=== PATIENT | female | born 1990 | race Caucasian/White ===

== ENCOUNTER 2023-11-16 20:41 | Emergency (ER) | payer OTHER, SELFPAY ==
[2023-11-16 20:51] VITALS: BP 110/74
[2023-11-16 21:23] LABS: % Basophils 0.4 % (0-2); % Eosinophils 0.4 % (0-6); % Immature Granulocytes 0.4 % (0-0.5); % Lymphocytes 13.6 % (20.5-51.1); % Monocytes 6.4 % (1.7-9.3); % Neutrophils 78.8 % (42.2-75.2); Absolute Lymphocytes 0.7 10^3/uL (1.2-3.4); Absolute Monocytes 0.3 10^3/uL (0.1-0.6); Absolute Neutrophils 4.2 10^3/uL (1.4-6.5); Hematocrit 42.8 % (37.0-47.0); Mean Corpuscular Hgb 23.2 pg (27.0-31.0); Mean Corpuscular Volume 82.8 fL (81.0-99.0); Mean Platelet Volume 9.1 fL (7.4-10.4); Nucleated Red Blood Cells % 0 %; Platelet Count 253 10^3/uL (130-400); Red Blood Cell Count 5.17 10^6/uL (4.20-5.40); Red Cell Dist. Width 13.5 % (11.5-14.5); White Blood Cell Count 5.3 10^3/uL (4.8-10.8)
[2023-11-16 21:36] LABS: COVID-19 Antigen Negative (Negative)
[2023-11-16 21:43] LABS: ALT (SGPT) 288 U/L (0-35); AST (SGOT) 163 U/L (14-36); Albumin 3.7 g/dl (3.5-5.0); Alkaline Phosphatase 97 U/L (38-126); Blood Urea Nitrogen 3 mg/dl (7-17); Calcium 9.4 mg/dl (8.4-10.2); Carbon Dioxide 21 mmol/L (22-30); Chloride 103 mmol/L (98-107); Glucose 95 mg/dl (70-99); Potassium 3.6 mmol/L (3.5-5.1); Sodium 134 mmol/L (135-145); Total Bilirubin 0.8 mg/dl (0.2-1.3); Total Protein 6.5 g/dl (6.3-8.2); eGFR > 60.00
[2023-11-16 22:09] LABS: Atypical Lymphocytes 2 %; Band Neutrophils 18 % (0-3); Eosinophils 1 % (0-6); Lymphocytes 9 % (20-51); Monocytes 4 % (2-9); Platelets Checked Yes; Total Cells Counted 100
[2023-11-16 22:22] LABS: Absolute Neutrophils -Man Diff 4.4 10^3/uL (1.4-6.5); Segmented Neutrophils 66 % (42-75)
[2023-11-16 22:23] LABS: Normal RBC Morphology Yes; Toxic Granulation Occassional
--- NOTE | 2023-11-16 22:25 | ED.GENMED ---
History of Present Illness
General
Chief Complaint: Abdominal Symptoms
Source: patient
Exam Limitations: none
Time Seen by Provider: 11/16/23 22:17
Travel History
Have you had any contact with someone who has COVID-19?: No
Do you have any symptoms of coronavirus? Fever > 100 degrees, chills, cough, shortness of breath, sore throat, loss of taste or smell, muscle aches, or headache?: No
History of Present Illness
History of Present Illness:
See MDM
Past History
Past History
ED Past Medical History: None
ED Past Surgical History: None
Social History
Personal: Single
Living: with family
Employment: Employed
Phy Exam
Physical Exam
Physical Exam:
See MDM
Course
Orders/Labs/Results
Orders:
Orders
11/16/23 21:12
COVID-19 Antigen Urgent
Source: Nasal Swab
Complete Blood Count/With Diff Urgent
HCG, Beta Quantitative [Beta HCG Quantitative] Urgent
Is this a screen?: No
Comment: patient is preg.
Manual Differential Urgent
INF RAPID [Influenza A+B Rapid Molecular] Urgent
TAYE Source: Nasal Swab
Specimen Description:
11/16/23 21:13
CMP [Comprehensive Metabolic Panel] Urgent
11/16/23 22:25
0.9% Sodium Chloride 1000 ml [Nss] 1,000 ml IV BOLUS
11/16/23 22:26
Urine Culture Urgent
TAYE Source: Urine
Specimen Description:
Abnormal Lab Results
11/16/23 11/16/23
21:12 21:13
MCH 23.2 L pg
(27.0-31.0)
MCHC 28.0 L g/dL
(33.0-37.0)
Absolute Lymphs (auto) 0.7 L 10^3/uL
(1.2-3.4)
Neutrophils % 78.8 H %
(42.2-75.2)
Lymphocytes % 13.6 L %
(20.5-51.1)
Band Neutrophils 18 H %
(0-3)
Lymphocytes (Manual) 9 L %
(20-51)
Sodium 134 L mmol/L
(135-145)
Carbon Dioxide 21 L mmol/L
(22-30)
BUN 3 L mg/dl
(7-17)
Creatinine 0.4 L mg/dL
(0.6-1.0)
AST 163 H U/L
(14-36)
ALT 288 H U/L
(0-35)
11/16/23 21:12
11/16/23 21:13
Vital Signs
Initial and Last Documented VS:
Initial Vital Signs
Temp Pulse Resp BP Pulse Ox
98.0 F 112 18 110/74 100
11/16/23 20:51 11/16/23 20:51 11/16/23 20:51 11/16/23 20:51 11/16/23 20:51
Last Documented Vital Signs
Temp Pulse Resp BP Pulse Ox
98.0 F 112 18 110/74 100
11/16/23 20:51 11/16/23 20:51 11/16/23 20:51 11/16/23 20:51 11/16/23 20:51
MDM/Problems Addressed
Differential Diagnosis Includes:
HPI and MDM Narrative:
33-year-old female presenting with nausea, vomiting and cough. Patient developed a cough on . She went to urgent care and was told she has a sinus infection. Patient disagreed with the diagnosis but took the antibiotics as prescribed.
Patient is approximately 9 weeks . She is G1, P0. She denies abdominal pain, vaginal bleeding or loss of fluid
On exam, she is dehydrated. She is a soft and nontender abdomen. She complains of increased urinary frequency but states that has been a relatively chronic issue. Patient states she has already had an internal ultrasound confirming IUP.
Patient found to be influenza positive. Since patient has been symptomatic for the past 4 days, she is out of the Tamiflu window. Will give IV fluids for dehydration. Lungs are clear. We discussed low utility of chest x-ray
Physical exam
General: Well appearing and non-toxic
HEENT: protecting airway. Dry mucous membranes
Neck: appears supple
CV: No evidence of cyanosis
Resp: No accessory muscle use. Lungs clear
Abd: Non-distended and nontender
Extremities: No deformities
Neuro: alert
Psych: Normal affect
Skin: Intact
Problems Addressed including Acute and Chronic Conditions affecting care:
1. Influenza
Acuity: acute
Prognosis: stable
Details: Discussed symptomatic care. She is out of the Tamiflu window
2. Dehydration
Acuity: acute
Prognosis: stable
Details: Will give IV fluids
3.
Acuity: acute
Prognosis: stable
Details: She states she already had ultrasound confirming live IUP. No symptoms of miscarriage in regards to abdominal pain, cramping or bleeding.
Updates
We discussed the elevated LFTs. Discussed having this reevaluated by PCP and OB
12 AM reevaluation, patient feeling better. Fluids almost done. Patient feels comfortable going home
Differential Diagnosis (but not limited to): Pneumonia, viral syndrome, COVID, influenza, dehydration
Testing considered: Chest x-ray but lungs are clear
Drug therapy (if applicable): OTC meds, please see d/c instruction regarding Rx drugs
Amount and/or Complexity of Data Reviewed
Clinical info obtained from: Patient
External data reviewed: N/A
Labs I independently reviewed (but not limited to): Influenza positive. LFT elevation but hemoglobin and platelets within normal limits. Blood pressure stable
Radiology: N/A
Pulse Ox: not hypoxic
EKG independently reviewed: N/A
Enzyme Chemist: N/A
Critical Care: N/A
Risk of Complication:
Social Determinants of health: Good social support
Discussed with other providers: N/A
Escalation of Care includes Admit/Obs: After being observed in the Emergency Department, pt stable for discharge.
Occasional wrong word or 'sound a like' substitutions may have occurred due to the inherent limitations of voice recognition software. Read the chart carefully and recognize, using context, where substitutions have occurred.
*Critical Care Note
Total Time (30-74mins, 75-104mins- exclusive of procedures): Not Applicable
ED Attending Note
-
Portions of this chart may have been created with voice recognition software.� Occasional wrong word or��sound alike� substitutions may have occurred due to the inherent limitations of voice recognition software.
Discharge Plan
Departure
Patient Disposition: Home (Routine Discharge)
Date of Disposition: 11/16/23
Time of Disposition: 23:54
Patient with high blood pressure during this ER visit?: No
Discharge Problem:
Influenza, Dehydration, LFT elevation
Instructions: Flu, Adult ED
Prescriptions:
No Action
lactase [Dairy Relief] 1 CAPSULE tablet
1 cap PO PRN PRN (Reason: reaction to milk)
Referrals:
Melvin Nixon MD [Family Provider] -
Activity Restrictions/Additional Instructions:
Please return for any worsening symptoms.
You may return at any time if you have further concerns.
Please follow up with your primary care doctor and OB at the first available appointment, preferably this week. Please discuss your symptoms. Your liver function should be rechecked.
Thank you for choosing [facility].
Interventions
Interventions:
*Risk Screen - Suicide Last Done: 11/16/23 20:51
*General Assessment Last Done: 11/16/23 20:51
*Neglect/Abuse Screening Last Done: 11/16/23 20:51
ED- Fall Risk Assessment Last Done: 11/16/23 20:51
*ED COVID-19 Vaccine History Last Done: 11/16/23 20:51
LH-Nvmtpp-Lanyvxwjzt Assessment Last Done: 11/16/23 22:31
[2023-11-16 22:31] VITALS: BMI 36.8
[2023-11-16] MEDS: NSS 1000 IV (22:41)
== END 2023-11-17 01:15 | disposition home or self-care (01) ==
LOC: EMR 20:41
PROVIDERS: Emergency Medicine; EMERGENCY PHYSICIAN Student in an Organized Health Care Education/Training Program; FAMILY PHYSICIAN Family Medicine
DX: O21.9 Vomiting of pregnancy, unspecified (principal); O99.511 Diseases of the respiratory system complicating pregnancy, first trimester; J11.1 Influenza due to unidentified influenza virus with other respiratory manifestations; E86.0 Dehydration; R79.89 Other specified abnormal findings of blood chemistry; O99.281 Endocrine, nutritional and metabolic diseases complicating pregnancy, first trimester; Z3A.09 9 weeks gestation of pregnancy; R35.0 Frequency of micturition; Z11.52 Encounter for screening for COVID-19; Z88.8 Allergy status to other drugs, medicaments and biological substances
CPT/HCPCS: 99284; 96360; 80053; 84702; 85025; 87502; 87811

== ENCOUNTER 2023-11-24 10:52 | Observation (INO) | payer OTHER, SELFPAY ==
[2023-11-23 22:41] VITALS: BP 122/80
--- NOTE | 2023-11-23 23:11 | ED.GENMED ---
History of Present Illness
<DEBORA Cruz - Last Filed: 11/23/23 23:17>
General
Chief Complaint: Abdominal Symptoms
Source: patient
Exam Limitations: none
Time Seen by Provider: 11/23/23 22:45
Nursing documentation reviewed up to this point in time: agreed with
Travel History
Have you had any contact with someone who has COVID-19?: No
Do you have any symptoms of coronavirus? Fever > 100 degrees, chills, cough, shortness of breath, sore throat, loss of taste or smell, muscle aches, or headache?: No
History of Present Illness
History of Present Illness:
33 y/o F who is 10 weeks presents to ED after continuous vomiting throughout . Patient states she has vomited 15 times today and has lost about 10 pounds in the last week. Patient was diagnosed with Flu last week in ED. She states
her flu symptoms are resolving except for persistent cough. Patient states she saw her OBGYN 1.5 weeks ago and was given B6/Unisom for her nausea. She states she was only able to take it for 2-3 days before she got sick with the flu and stopped
taking it. She states she is trying to eat small meals but is still not able to keep anything down. She denies abdominal pain, diarrhea, headache, congestion or chest pain.
Past History
<DEBORA Cruz - Last Filed: 11/23/23 23:17>
Past History
ED Past Medical History: None
ED Past Surgical History: None
Social History
Personal: Single
Living: with family
Employment: Employed
Review of Systems
<DEBORA Cruz - Last Filed: 11/23/23 23:17>
Review of Systems
Allergies reviewed?: Yes
All Other Systems: ROS reviewed and negative except as documented in HPI and ROS
Constitutional: Reports weight loss
EENT: Reports no symptoms
Respiratory: Reports cough
Cardiac: Reports no symptoms
ABD/GI: Reports nausea and vomiting
: Reports no symptoms
Musculoskeletal: Reports no symptoms
Skin: Reports no symptoms
Neurological: Reports no symptoms
Endocrine: Reports no symptoms
Hematologic/Lymphatic: Reports no symptoms
Psychiatric: Reports no symptoms
Phy Exam
<DEBORA Cruz - Last Filed: 11/23/23 23:17>
General Physical Exam
General Presentation: well appearing and no apparent distress
General age: appears stated age
General Skin: warm and dry
General Habitus: normal
General Mental: alert
General Hydration: appears well hydrated
ENT Exam
ENT Exam: EOMI, TM's normal and pharynx normal
Cardiovascular Exam
Cardiovascular Exam: regular rate/rhythm, no edema, no gallop, no murmur and normal peripheral pulses
Pulmonary Exam
Pulmonary Exam: lungs clear, no respiratory distress, no rales, no crackles and no rhonchi
Gastrointestinal Exam
Gastrointestinal Exam: normal bowel sounds
Neurological Exam
Neurological Exam: alert and oriented x3
Skin Exam
Skin Exam: normal color, warm/dry and no rash
Psychiatric Exam
Psychiatric Exam: normal mood/affect
Course
<DEBORA Cruz - Last Filed: 11/23/23 23:17>
Orders/Labs/Results
Orders:
Orders
11/23/23 23:14
0.9% Sodium Chloride 1000 ml [Nss] 1,000 ml IV BOLUS
Ondansetron Injectable [Zofran] 4 mg IV NOW STA
11/23/23 23:18
Prochlorperazine [Compazine] 10 mg IV NOW STA
11/23/23 23:28
Basic Metabolic Panel Urgent
Magnesium Urgent
Urinalysis Reflex To Culture Urgent
Date Specimen was Collected: 11/23/23
Time Specimen was Collected: 23:27
Urine Microscopic Reflex Cult Urgent
Urine Culture Urgent
TAYE Source: U
Specimen Description:
Date Specimen was Collected: 11/23/23
Time Specimen was Collected: 23:27
11/23/23 23:40
Famotidine [Pepcid] 20 mg IV NOW STA
Lorazepam [Ativan] 0.5 mg IV NOW STA
11/24/23 00:23
0.9% Sodium Chloride 500 ml [Nss] 500 ml IV BOLUS
11/24/23 00:24
Potassium Chloride [KCl] 40 meq PO NOW STA
11/24/23 01:00
Dextrose 5%/0.45%Sodchl 500 ml [D5/0.45%NaCl] 500 ml IV 125 mls/hr
11/24/23 01:45
Potassium Chloride [KCl] 20 meq Dextrose 5%/Water 500 ml [D5w] 500 ml IV ONCE
11/24/23 06:40
Basic Metabolic Panel Urgent
11/24/23 06:59
Urinalysis Reflex To Culture Urgent
Date Specimen was Collected: 11/24/23
Time Specimen was Collected: 06:54
11/24/23 08:20
Potassium Chloride 10% Elixir [KCl Elixir] 40 meq PO NOW STA
11/24/23 10:11
Metoclopramide [Reglan] 10 mg IV NOW STA
Abnormal Lab Results
11/23/23 11/24/23 11/24/23
23:28 06:40 06:59
Sodium 134 L mmol/L 134 L mmol/L
(135-145) (135-145)
Potassium 3.3 L mmol/L 3.2 L mmol/L
(3.5-5.1) (3.5-5.1)
Chloride 108 H mmol/L 108 H mmol/L
(98-107) (98-107)
Carbon Dioxide 11 L* mmol/L 16 L mmol/L
(22-30) (22-30)
BUN 3 L mg/dl < 2 L mg/dl
(7-17) (7-17)
Creatinine 0.4 L mg/dL 0.4 L mg/dL
(0.6-1.0) (0.6-1.0)
Glucose 100 H mg/dl
(70-99)
Calcium 8.3 L mg/dl
(8.4-10.2)
Urine Ketones 3+ A 3+ A
(Negative) (Negative)
Urine Bilirubin 1+ A
(Negative)
Urine Urobilinogen 3+ A 2+ A
(Neg - 1+) (Neg - 1+)
Leukocyte Esterase Rfl Trace A
(Negative)
Urine RBC 3-6 A /HPF
(0-2)
Urine Bacteria (Reflex) Moderate A
(Negative)
Urine Albumin (Reflex) 1+ A
(Neg - Trace)
11/24/23 06:40
Vital Signs
Initial and Last Documented VS:
Initial Vital Signs
Temp Pulse Resp BP Pulse Ox
98 F 98 20 122/80 100
11/23/23 22:41 11/23/23 22:41 11/23/23 22:41 11/23/23 22:41 11/23/23 22:41
Last Documented Vital Signs
Temp Pulse Resp BP Pulse Ox
97.6 F 76 20 98/62 97
11/24/23 11:04 11/24/23 11:04 11/24/23 11:04 11/24/23 11:04 11/24/23 10:28
<Kunal Knox MD - Last Filed: 11/25/23 15:06>
Orders/Labs/Results
Orders:
Orders
11/23/23 23:14
0.9% Sodium Chloride 1000 ml [Nss] 1,000 ml IV BOLUS
Ondansetron Injectable [Zofran] 4 mg IV NOW STA
11/23/23 23:18
Prochlorperazine [Compazine] 10 mg IV NOW STA
11/23/23 23:28
Basic Metabolic Panel Urgent
Magnesium Urgent
Urinalysis Reflex To Culture Urgent
Date Specimen was Collected: 11/23/23
Time Specimen was Collected: 23:27
Urine Microscopic Reflex Cult Urgent
Urine Culture Urgent
TAYE Source: U
Specimen Description:
Date Specimen was Collected: 11/23/23
Time Specimen was Collected: 23:27
11/23/23 23:40
Famotidine [Pepcid] 20 mg IV NOW STA
Lorazepam [Ativan] 0.5 mg IV NOW STA
11/24/23 00:23
0.9% Sodium Chloride 500 ml [Nss] 500 ml IV BOLUS
11/24/23 00:24
Potassium Chloride [KCl] 40 meq PO NOW STA
11/24/23 01:00
Dextrose 5%/0.45%Sodchl 500 ml [D5/0.45%NaCl] 500 ml IV 125 mls/hr
11/24/23 01:45
Potassium Chloride [KCl] 20 meq Dextrose 5%/Water 500 ml [D5w] 500 ml IV ONCE
11/24/23 06:40
Basic Metabolic Panel Urgent
11/24/23 06:59
Urinalysis Reflex To Culture Urgent
Date Specimen was Collected: 11/24/23
Time Specimen was Collected: 06:54
11/24/23 08:20
Potassium Chloride 10% Elixir [KCl Elixir] 40 meq PO NOW STA
11/24/23 10:11
Metoclopramide [Reglan] 10 mg IV NOW STA
Abnormal Lab Results
11/23/23 11/24/23 11/24/23
: 06:40 06:59
Sodium 134 L mmol/L 134 L mmol/L
(135-145) (135-145)
Potassium 3.3 L mmol/L 3.2 L mmol/L
(3.5-5.1) (3.5-5.1)
Chloride 108 H mmol/L 108 H mmol/L
(98-107) (98-107)
Carbon Dioxide 11 L* mmol/L 16 L mmol/L
(22-30) (22-30)
BUN 3 L mg/dl < 2 L mg/dl
(7-17) (7-17)
Creatinine 0.4 L mg/dL 0.4 L mg/dL
(0.6-1.0) (0.6-1.0)
Glucose 100 H mg/dl
(70-99)
Calcium 8.3 L mg/dl
(8.4-10.2)
Urine Ketones 3+ A 3+ A
(Negative) (Negative)
Urine Bilirubin 1+ A
(Negative)
Urine Urobilinogen 3+ A 2+ A
(Neg - 1+) (Neg - 1+)
Leukocyte Esterase Rfl Trace A
(Negative)
Urine RBC 3-6 A /HPF
(0-2)
Urine Bacteria (Reflex) Moderate A
(Negative)
Urine Albumin (Reflex) 1+ A
(Neg - Trace)
11/24/23 06:40
Vital Signs
Initial and Last Documented VS:
Initial Vital Signs
Temp Pulse Resp BP Pulse Ox
98 F 98 20 122/80 100
11/23/23 22:41 11/23/23 22:41 11/23/23 22:41 11/23/23 22:41 11/23/23 22:41
Last Documented Vital Signs
Temp Pulse Resp BP Pulse Ox
97.6 F 76 20 98/62 97
11/24/23 11:04 11/24/23 11:04 11/24/23 11:04 11/24/23 11:04 11/24/23 10:28
<Margarito Talavera, DO - Last Filed: 11/24/23 10:13>
Orders/Labs/Results
Orders:
Orders
11/23/23 23:14
0.9% Sodium Chloride 1000 ml [Nss] 1,000 ml IV BOLUS
Ondansetron Injectable [Zofran] 4 mg IV NOW STA
11/23/23 23:18
Prochlorperazine [Compazine] 10 mg IV NOW STA
11/23/23 23:28
Basic Metabolic Panel Urgent
Magnesium Urgent
Urinalysis Reflex To Culture Urgent
Date Specimen was Collected: 11/23/23
Time Specimen was Collected: 23:27
Urine Microscopic Reflex Cult Urgent
Urine Culture Urgent
TAYE Source: U
Specimen Description:
Date Specimen was Collected: 11/23/23
Time Specimen was Collected: 23:27
11/23/23 23:40
Famotidine [Pepcid] 20 mg IV NOW STA
Lorazepam [Ativan] 0.5 mg IV NOW STA
11/24/23 00:23
0.9% Sodium Chloride 500 ml [Nss] 500 ml IV BOLUS
11/24/23 00:24
Potassium Chloride [KCl] 40 meq PO NOW STA
11/24/23 01:00
Dextrose 5%/0.45%Sodchl 500 ml [D5/0.45%NaCl] 500 ml IV 125 mls/hr
11/24/23 01:45
Potassium Chloride [KCl] 20 meq Dextrose 5%/Water 500 ml [D5w] 500 ml IV ONCE
11/24/23 06:40
Basic Metabolic Panel Urgent
11/24/23 06:59
Urinalysis Reflex To Culture Urgent
Date Specimen was Collected: 11/24/23
Time Specimen was Collected: 06:54
11/24/23 08:20
Potassium Chloride 10% Elixir [KCl Elixir] 40 meq PO NOW STA
11/24/23 10:11
Metoclopramide [Reglan] 10 mg IV NOW STA
Abnormal Lab Results
11/23/23 11/24/23 11/24/23
23:28 06:40 06:59
Sodium 134 L mmol/L 134 L mmol/L
(135-145) (135-145)
Potassium 3.3 L mmol/L 3.2 L mmol/L
(3.5-5.1) (3.5-5.1)
Chloride 108 H mmol/L 108 H mmol/L
(98-107) (98-107)
Carbon Dioxide 11 L* mmol/L 16 L mmol/L
(22-30) (22-30)
BUN 3 L mg/dl < 2 L mg/dl
(7-17) (7-17)
Creatinine 0.4 L mg/dL 0.4 L mg/dL
(0.6-1.0) (0.6-1.0)
Glucose 100 H mg/dl
(70-99)
Calcium 8.3 L mg/dl
(8.4-10.2)
Urine Ketones 3+ A 3+ A
(Negative) (Negative)
Urine Bilirubin 1+ A
(Negative)
Urine Urobilinogen 3+ A 2+ A
(Neg - 1+) (Neg - 1+)
Leukocyte Esterase Rfl Trace A
(Negative)
Urine RBC 3-6 A /HPF
(0-2)
Urine Bacteria (Reflex) Moderate A
(Negative)
Urine Albumin (Reflex) 1+ A
(Neg - Trace)
11/24/23 06:40
Vital Signs
Initial and Last Documented VS:
Initial Vital Signs
Temp Pulse Resp BP Pulse Ox
98 F 98 20 122/80 100
11/23/23 22:41 11/23/23 22:41 11/23/23 22:41 11/23/23 22:41 11/23/23 22:41
Last Documented Vital Signs
Temp Pulse Resp BP Pulse Ox
97.6 F 76 20 98/62 97
11/24/23 11:04 11/24/23 11:04 11/24/23 11:04 11/24/23 11:04 11/24/23 10:28
<DEBORA Cruz - Last Filed: 11/23/23 23:17>
MDM/Problems Addressed
Differential Diagnosis Includes:
Hyperemesis Gravidarum
<Kunal Knox MD - Last Filed: 11/25/23 15:06>
*Critical Care Note
Total Time (30-74mins, 75-104mins- exclusive of procedures): Not Applicable
<Margarito Talavera DO - Last Filed: 11/24/23 10:13>
Update Note
Update Note:
Patient reassessed several times. Initially felt a little better. Again reassessed and now vomiting again. Attempted oral hydration and oral potassium supplement but patient cannot tolerate it. Will discuss with OB and admit
ED Attending Note
<DEBORA Cruz - Last Filed: 11/23/23 23:17>
-
Portions of this chart may have been created with voice recognition software.� Occasional wrong word or��sound alike� substitutions may have occurred due to the inherent limitations of voice recognition software.
<Kunal Knox MD - Last Filed: 11/25/23 15:06>
ED Attending Note
Patient seen and examined by attending physician: Yes
ED Attending Note:
Patient G1, P0, diagnosed with influenza 1 week ago and treated in ED, returns to ED secondary to worsening vomiting since being home. However, patient states that other symptoms, including headache and cough have improved significantly. Denies
abdominal pain. Denies vaginal bleeding. Denies chest pain. Denies shortness of breath. Denies dizziness. Patient reports vomiting greater than 10 episodes today.
Physical Exam
General: mild distress, not acutely ill. afebrile
Head: nc/at. eomi
Neck: supple. no meningeal signs. normal posterior pharynx
Heart: s1/s2 regular rate and rhythm, no murmur. equal radial pulses.
Lungs: no acute respiratory distress. clear bilaterally
Abdomen: normal bowel sounds. not tender.
Neuro: alert and oriented. no focal neurological deficits
Skin: no rash
Psychiatric: well kept. interactive and cooperative
Extremities: no edema. no calf tenderness.
History/exam, concerning for mild dehydration. As such, will check blood, U/A, provide IVF and reassess afterwards.
Blood work significant for metabolic acidosis, along with ketones noted on UA. Will continue hydration, including D5 1/2 NS with K+, and repeat studies afterwards.
Discharge Plan
Departure
Patient Disposition: LDRP
Date of Disposition: 11/24/23
Time of Disposition: 10:12
Admit to: Med/Surg
Presentation/result/management discussed w/ accepting /DO:
Discharge Problem:
Hyperemesis gravidarum, Hypokalemia, Severe dehydration
Interventions
Interventions:
*Risk Screen - Suicide Last Done: 11/24/23 11:04
*General Assessment Last Done: 11/24/23 03:15
*Neglect/Abuse Screening Last Done: 11/23/23 22:41
ED- Fall Risk Assessment Last Done: 11/23/23 23:31
*ED COVID-19 Vaccine History Last Done: 11/24/23 03:15
*Nursing Disposition Last Done: 11/24/23 10:57
OA-Takgzd-Qxbcoxqytc Assessment Last Done: 11/23/23 23:31
ED-Female Genitourinary Assessment Last Done: 11/23/23 23:31
Discharge Date and Time
Discharge Date/Time: 11/24/23 10:58
[2023-11-23] MEDS: NSS 1000 IV (23:25)
[2023-11-23] MEDS: COMPAZINE 10 MG IV (23:25)
[2023-11-23 23:36] LABS: Urine Albumin 1+ (Neg - Trace); Urine Bilirubin 1+ (Negative); Urine Character Slightly Cloudy (Clear); Urine Color Yellow; Urine Glucose Negative (Negative); Urine Ketone 3+ (Negative); Urine Leukocyte Trace (Negative); Urine Nitrite Negative (Negative); Urine Occult Blood Negative (Negative); Urine Specific Gravity 1.025 (<1.030); Urine Urobilinogen 3+ (Neg - 1+)
[2023-11-23] MEDS: PEPCID 20 MG IV (23:44)
[2023-11-23 23:52] LABS: Blood Urea Nitrogen 3 mg/dl (7-17); Calcium 9.3 mg/dl (8.4-10.2); Carbon Dioxide 11 mmol/L (22-30); Chloride 108 mmol/L (98-107); Glucose 90 mg/dl (70-99); Magnesium 1.8 mg/dl (1.6-2.3); Potassium 3.3 mmol/L (3.5-5.1); Sodium 134 mmol/L (135-145); eGFR > 60.00
[2023-11-24 00:11] LABS: Urine Bacteria Moderate (Negative); Urine Squamous Cell >30 /LPF (Few)
[2023-11-24] MEDS: NSS 500 IV (00:33)
[2023-11-24] MEDS: KCL 510 MEQ IV (01:45)
[2023-11-24 03:40] VITALS: BP 99/66
[2023-11-24 07:12] LABS: Blood Urea Nitrogen < 2 mg/dl (7-17); Calcium 8.3 mg/dl (8.4-10.2); Carbon Dioxide 16 mmol/L (22-30); Chloride 108 mmol/L (98-107); Glucose 100 mg/dl (70-99); Potassium 3.2 mmol/L (3.5-5.1); Sodium 134 mmol/L (135-145); eGFR > 60.00
[2023-11-24 07:17] LABS: Urine Albumin Trace (Neg - Trace); Urine Bilirubin Negative (Negative); Urine Character Clear (Clear); Urine Color Yellow; Urine Glucose Negative (Negative); Urine Ketone 3+ (Negative); Urine Leukocyte Negative (Negative); Urine Nitrite Negative (Negative); Urine Occult Blood Negative (Negative); Urine Specific Gravity 1.025 (<1.030); Urine Urobilinogen 2+ (Neg - 1+)
[2023-11-24] MEDS: KCL ELIXIR 40 MEQ PO (08:27)
[2023-11-24] MEDS: REGLAN 10 MG IV (10:18)
[2023-11-24 10:28] VITALS: BP 99/66
[2023-11-24 11:04] VITALS: BP 98/62; BMI 35.6
[2023-11-24] MEDS: KCL 1020 MEQ IV (11:54)
[2023-11-24] MEDS: KCL 1020 ML IV (11:54)
[2023-11-24] MEDS: KCL 1010 MEQ IV (20:21)
[2023-11-25] MEDS: KCL 1010 MEQ IV (03:35)
[2023-11-25 08:48] LABS: Urine Albumin Negative (Neg - Trace); Urine Bilirubin Negative (Negative); Urine Character Clear (Clear); Urine Color Yellow; Urine Glucose Negative (Negative); Urine Ketone 3+ (Negative); Urine Leukocyte Negative (Negative); Urine Nitrite Negative (Negative); Urine Occult Blood Negative (Negative); Urine Specific Gravity 1.015 (<1.030); Urine Urobilinogen Negative (Neg - 1+)
[2023-11-25 09:06] LABS: ALT (SGPT) 255 U/L (0-35); AST (SGOT) 87 U/L (14-36); Albumin 3.4 g/dl (3.5-5.0); Alkaline Phosphatase 84 U/L (38-126); Blood Urea Nitrogen < 2 mg/dl (7-17); Calcium 8.7 mg/dl (8.4-10.2); Carbon Dioxide 14 mmol/L (22-30); Chloride 110 mmol/L (98-107); Estimated Creatinine Clearance > 125 ml/min; Glucose 79 mg/dl (70-99); Sodium 134 mmol/L (135-145); Total Bilirubin 1.3 mg/dl (0.2-1.3); eGFR > 60.00
[2023-11-25] MEDS: SODIUM BICARBONATE 1150 MEQ IV (10:36)
--- NOTE | 2023-11-25 15:33 | W.CON.NEPH ---
Consultation
-
Date/Time Consultation Requested: 11/25 9:46AM
Date/Time Consultation Performed: 11/25 3:33PM
Requesting Provider: Alta Flores
Performing Provider: Beronica Atkinson
Reason for Consultation: metabolic acidosis
Medical History
-
Chief Complaint: metabolic acidosis
History of Present Illness:
Ms. Santana is a 33 YOF () with no significant past medical history who presents to the hospital after not being able to tolerate PO intake since . The patient states that last week she developed the flu and had been unable to keep food
or liquid down from to Friday evening. She states that yesterday, she was able to have some chicken noodle soup in the evening and this morning, she did have some breakfast. She endorses throwing up >15x/day, along with some mild diarrhea.
She states that she has felt terrible with the flu, including cough, fevers, and chills.
Nephrology was consulted due to severe metabolic acidosis.
Past Medical History
none
Past Medical History: None
Past Surgical History: None
Social History
lives with mom at home, has a fiance, works as a information receptionist.
denies smoking, drinking, illicits.
Tobacco: Non-Smoker
Alcohol: None
Drug: None
Personal: Single
Living: With Family
Employment: Employed
Family History
grandmother had hyperemesis with
Allergies / Home Medications
Allergy/AdvReac Type Severity Reaction Status Date / Time
diphenhydramine Allergy Rash Verified 11/24/23 11:10
[From Benadryl]
Medication Instructions Recorded Confirmed Type
No Meds [No Current Medications] 11/24/23 11/24/23 History
Review of Systems
-
History Source: Patient
All other systems: Negative unless noted
Constitutional: Fever, Weight Loss and Fatigue
EENT: No Symptoms
Respiratory: Cough
Cardiac: No Symptoms
Abdomen/GI: Nausea, Vomiting and Diarrhea
: No Symptoms
Musculoskeletal: No Symptoms
Skin: No Symptoms
Neurological: No Symptoms
Endocrine: No Symptoms
Hematologic/Lymphatic: No Symptoms
Physical Exam
Vital Signs
Vital Signs
Temp Pulse Resp BP Pulse Ox
97.6 F 76 20 98/62 97
11/24/23 11:04 11/24/23 11:04 11/24/23 11:04 11/24/23 11:04 11/24/23 10:28
Lab Results
eGFR > 60.00 11/25/23 08:24
Albumin 3.4 g/dl (3.5-5.0) L 11/25/23 08:24
Physical Exam
General: AOx3
HEENT: PERRL and EOMI
Respiratory: Clear
Cardiac: S1/S2
Breast: Deferred by me
Abdomen: Soft, Nontender and Nondistended
Rectal: Deferred by Provider
Genito-urinary: Clear Urine
Musculoskeletal: No Edema
Skin: No Rash
Neuro: Nonfocal/Grossly Intact
Psych: Mood/afflect pleasant, Insight/judgement good and Appropriate
Assessment/Plan
-
Assessment:
Hyperemesis gravidarum
HAGMA + NAGMA
Hyponatremia
Flu +
Diarrhea
Plan:
Acid/Base
- HAGMA likely from starvation ketosis, will obtain beta hydroxybutyrate but gap has already closed with fluids and PO intake so might not be elevated
- NAGMA likely from diarrhea. will obtain UAG
- agree with sodium bicarbonate which is running now.
- will not do D5 as the patient is now able to tolerate PO intake
- encourage PO intake as possible
- labs planned for 4PM.
Hyponatremia
- Na 134 and stable, likely hypovolemic hyponatremia +
- would continue to trend BMPs
- urine osm and urine Na pending
Data Reviewed
-
Labs: Labs Reviewed by me, Discussed with Nurse and Discussed with Patient
Old Records: Reviewed
[2023-11-25 17:01] LABS: Blood Urea Nitrogen < 2 mg/dl (7-17); Calcium 8.6 mg/dl (8.4-10.2); Carbon Dioxide 21 mmol/L (22-30); Chloride 102 mmol/L (98-107); Estimated Creatinine Clearance > 125 ml/min; Glucose 75 mg/dl (70-99); Potassium 3.4 mmol/L (3.5-5.1); Sodium 134 mmol/L (135-145); eGFR > 60.00
[2023-11-25 17:13] LABS: Osmolality Urine 509 mOsm/kg (300-900)
[2023-11-25 17:19] LABS: Urine Sodium 183 mmol/L (30-90)
[2023-11-25 17:23] LABS: B-Hydroxybutyrate 2.51 mmol/L (0.02-0.27)
[2023-11-25] MEDS: KCL 1020 MEQ IV (18:31)
--- NOTE | 2023-11-26 04:09 | DOWNTIME ---
There was a [employer] Downtime on 11/26/2023 from 0111 to 11/26/2023 at 0405. Downtime documentation of patient's care, including medication administrations, has been reconciled in the electronic record per guidelines. Refer to the
patient's paper chart under the miscellaneous tab to see printed paper medication records and downtime forms.
[2023-11-26] MEDS: KCL 1020 MEQ IV (04:13)
[2023-11-26 07:02] LABS: B-Hydroxybutyrate 1.99 mmol/L (0.02-0.27)
[2023-11-26 08:59] LABS: Glycohemoglobin (HgbA1c) 5.2 % (4.0-5.6)
[2023-11-26 10:34] LABS: ALT (SGPT) 199 U/L (0-35); AST (SGOT) 62 U/L (14-36); Alkaline Phosphatase 70 U/L (38-126); Blood Urea Nitrogen < 2 mg/dl (7-17); Calcium 8.6 mg/dl (8.4-10.2); Carbon Dioxide 21 mmol/L (22-30); Chloride 108 mmol/L (98-107); Estimated Creatinine Clearance > 125 ml/min; Glucose 78 mg/dl (70-99); Potassium 3.8 mmol/L (3.5-5.1); Sodium 135 mmol/L (135-145); Total Bilirubin 0.9 mg/dl (0.2-1.3); Total Protein 5.5 g/dl (6.3-8.2); eGFR > 60.00
--- NOTE | 2023-11-26 13:58 | W.PN.NEPH.PH ---
Today's Communication / Plan
-
- Na improved
- Acidosis stable
- D5/sodium bicarb gtt overnight
- trend beta hydroxybutyrates
Assessment/Plan
-
Assessment:
Hyperemesis gravidarum
HAGMA + NAGMA
Hyponatremia
Flu +
Diarrhea
Plan:
Acid/Base
- HAGMA likely from starvation ketoacidosis, beta hydroxybutyrate elevated to 2.5, improved to 1.9 this AM with fluids
- NAGMA likely from diarrhea. will obtain UAG (urine chloride still pending)
- given LR overnight, plan to change to [id number] today
- encourage PO intake as possible
Hyponatremia (resolved)
- Na 135 now, previously 134, likely hypovolemic hyponatremia +
- would continue to trend BMPs
Hypokalemia
- please replete K PRN
- now stable at 3.8
Of note the patient is noted to have elevated AST/ALT. Could be caused by starvation but would consider abdominal imaging/GI consult.
-
-
Date of Service: November 26, 2023
CC / HPI / ROS
-
Chief Complaint:
acidosis
History of Present Illness:
hyperemesis gravidarum
flu +
Review of Systems:
tolerating PO intake now
Labs
-
Labs:
Sodium Cancelled 11/26/23 08:19
Potassium Cancelled 11/26/23 08:19
Chloride Cancelled 11/26/23 08:19
Carbon Dioxide Cancelled 11/26/23 08:19
BUN Cancelled 11/26/23 08:19
Creatinine Cancelled 11/26/23 08:19
eGFR Cancelled 11/26/23 08:19
Glucose Cancelled 11/26/23 08:19
Calcium Cancelled 11/26/23 08:19
Albumin Cancelled 11/26/23 08:19
Physical Exam
-
Vital Signs:
Vital Signs
Temp Pulse Resp BP Pulse Ox
97.6 F 76 20 98/62 97
11/24/23 11:04 11/24/23 11:04 11/24/23 11:04 11/24/23 11:04 11/24/23 10:28
Cardiovascular:: Regular rate and rhythm
Respiratory:: Bilateral: CTA
Lung Excursion:: Normal
Abdomen:: Nontender and Soft
Bowel Sounds:: Normal
Extremity Edema:: None: Bilateral:
Conti Catheter: No
[2023-11-26] MEDS: SODIUM BICARBONATE 1150 MEQ IV (14:29)
[2023-11-27] MEDS: SODIUM BICARBONATE 1150 MEQ IV (03:04)
[2023-11-27 06:02] LABS: ALT (SGPT) 171 U/L (0-35); AST (SGOT) 54 U/L (14-36); Albumin 2.7 g/dl (3.5-5.0); Alkaline Phosphatase 74 U/L (38-126); Blood Urea Nitrogen < 2 mg/dl (7-17); Calcium 8.7 mg/dl (8.4-10.2); Carbon Dioxide 28 mmol/L (22-30); Chloride 105 mmol/L (98-107); Estimated Creatinine Clearance > 125 ml/min; Glucose 110 mg/dl (70-99); Potassium 3.3 mmol/L (3.5-5.1); Sodium 135 mmol/L (135-145); Total Bilirubin 0.6 mg/dl (0.2-1.3); Total Protein 5.1 g/dl (6.3-8.2); eGFR > 60.00
[2023-11-27] MEDS: KCL 40 MEQ PO (09:46)
--- NOTE | 2023-11-27 15:02 | W.PN.NEPH.PH ---
Today's Communication / Plan
-
- likely d/c home
- f/u labs per OB
Assessment/Plan
-
Assessment:
Hyperemesis gravidarum
HAGMA + NAGMA
Hyponatremia
Flu +
Diarrhea
Plan:
Acid/Base
- HAGMA likely from starvation ketoacidosis, beta hydroxybutyrate elevated to 2.5 --> 1.9 --> 0.2
- normalized with [id number]
- encourage PO intake as possible
Hyponatremia (resolved)
- Na 135 now, previously 134, likely hypovolemic hyponatremia +
- would continue to trend BMPs
Hypokalemia
- please replete K PRN
- likely low in the setting of D5 with insulin release causing hypoK
Of note the patient is noted to have elevated AST/ALT. Could be caused by starvation but would consider abdominal imaging/GI consult.
-
-
Date of Service: November 27, 2023
CC / HPI / ROS
-
Chief Complaint:
acidosis
History of Present Illness:
hyperemesis gravidarum
flu +
Review of Systems:
tolerating PO intake now
Labs
-
Labs:
Sodium 135 mmol/L (135-145) 11/27/23 05:12
Potassium 3.3 mmol/L (3.5-5.1) L 11/27/23 05:12
Chloride 105 mmol/L (98-107) 11/27/23 05:12
Carbon Dioxide 28 mmol/L (22-30) 11/27/23 05:12
BUN < 2 mg/dl (7-17) L 11/27/23 05:12
Creatinine 0.3 mg/dL (0.6-1.0) L 11/27/23 05:12
eGFR > 60.00 11/27/23 05:12
Glucose 110 mg/dl (70-99) H 11/27/23 05:12
Calcium 8.7 mg/dl (8.4-10.2) 11/27/23 05:12
Albumin 2.7 g/dl (3.5-5.0) L 11/27/23 05:12
Physical Exam
-
Vital Signs:
Vital Signs
Temp Pulse Resp BP Pulse Ox
97.6 F 76 20 98/62 97
11/24/23 11:04 11/24/23 11:04 11/24/23 11:04 11/24/23 11:04 11/24/23 10:28
Cardiovascular:: Regular rate and rhythm
Respiratory:: Bilateral: CTA
Lung Excursion:: Normal
Abdomen:: Nontender and Soft
Bowel Sounds:: Normal
Extremity Edema:: None: Bilateral:
Conti Catheter: No
[2023-11-27 19:19] LABS: Hepatitis B Surface Antigen Negative (Negative)
[2023-11-27 19:36] LABS: Hepatitis C Antibody Negative (Negative)
[2023-11-27 21:01] LABS: 24 Hour Urine Total Volume Random mL; Chloride, Urine 173 mmol/L; Creatinine, Urine per Volume 36 mg/dL; Urine Collection Length Random hr
== END 2023-11-27 14:00 | disposition home or self-care (01) ==
LOC: LDRP 10:52
PROVIDERS: Emergency Medicine; Internal Medicine; Obstetrics & Gynecology; ADMITTING PHYSICIAN Obstetrics & Gynecology; EMERGENCY PHYSICIAN Emergency Medicine; FAMILY PHYSICIAN Family Medicine; OTHER PHYSICIAN Student in an Organized Health Care Education/Training Program
DX: O21.1 Hyperemesis gravidarum with metabolic disturbance (principal); Z3A.10 10 weeks gestation of pregnancy; Z86.19 Personal history of other infectious and parasitic diseases
CPT/HCPCS: 76801; 80048; 80053; 81003; 81015; 82010; 82436; 83036; 83735; 83935; 84133; 84300; 86803; 87086; 87340; 96361; 96374; 96375; 99285; G0378

== ENCOUNTER 2024-01-14 20:12 | Emergency (ER) | payer OTHER, SELFPAY ==
[2024-01-14 20:12] VITALS: BMI 38.2
[2024-01-14 20:13] VITALS: BP 115/79
[2024-01-14 20:25] LABS: % Basophils 0.3 % (0-2); % Immature Granulocytes 0.5 % (0-0.5); % Lymphocytes 28.4 % (20.5-51.1); % Monocytes 6.9 % (1.7-9.3); % Neutrophils 62.9 % (42.2-75.2); Absolute Eosinophils 0.1 10^3/uL (0-0.7); Absolute Immature Granulocytes 0.1 10^3/uL (0-0.05); Absolute Lymphocytes 3.5 10^3/uL (1.2-3.4); Absolute Monocytes 0.9 10^3/uL (0.1-0.6); Absolute Neutrophils 7.8 10^3/uL (1.4-6.5); Hematocrit 37.5 % (37.0-47.0); Hemoglobin 12.7 g/dL (12.0-16.0); Mean Corp Hgb Conc. 33.9 g/dL (33.0-37.0); Mean Corpuscular Hgb 28.7 pg (27.0-31.0); Mean Corpuscular Volume 84.8 fL (81.0-99.0); Mean Platelet Volume 9.1 fL (7.4-10.4); Nucleated Red Blood Cells % 0 %; Platelet Count 322 10^3/uL (130-400); Red Blood Cell Count 4.42 10^6/uL (4.20-5.40); Red Cell Dist. Width 13.6 % (11.5-14.5); White Blood Cell Count 12.4 10^3/uL (4.8-10.8)
[2024-01-14 20:43] LABS: ALT (SGPT) 62 U/L (0-35); AST (SGOT) 40 U/L (14-36); Albumin 3.8 g/dl (3.5-5.0); Alkaline Phosphatase 83 U/L (38-126); Blood Urea Nitrogen 6 mg/dl (7-17); Calcium 9.7 mg/dl (8.4-10.2); Carbon Dioxide 24 mmol/L (22-30); Chloride 101 mmol/L (98-107); Glucose 90 mg/dl (70-99); Potassium 4.5 mmol/L (3.5-5.1); Sodium 134 mmol/L (135-145); Total Bilirubin 0.4 mg/dl (0.2-1.3); Total Protein 6.8 g/dl (6.3-8.2); eGFR > 60.00
[2024-01-14 22:39] VITALS: BP 132/88
[2024-01-14 23:00] VITALS: BP 113/74
--- NOTE | 2024-01-14 23:46 | ED.GENMED ---
History of Present Illness
General
Chief Complaint: Visual Problem
Source: patient, spouse and previous hospital records (Hospitalization November of this year for hyperemesis gravidarum after acute influenza.)
Exam Limitations: none
Time Seen by Provider: 01/14/24 23:31
Nursing documentation reviewed up to this point in time: agreed with
Travel History
Have you had any contact with someone who has COVID-19?: No
Do you have any symptoms of coronavirus? Fever > 100 degrees, chills, cough, shortness of breath, sore throat, loss of taste or smell, muscle aches, or headache?: No
History of Present Illness
History of Present Illness:
This is a 33-year-old woman currently 17 weeks who complains of brief episode of flashing lights in bilateral vision that occurred around 7 PM while at work. She denies loss of vision but did notice very mild lightheadedness during
episode. No dizziness, no headache, no tunnel vision, no chest pain or palpitations, no shortness of breath. Episode lasted less than a minute, resolved and has not returned. She did eat half of a banana immediately after that episode.
Prior to consuming the banana she had lunch around 1:30 PM. She states she generally eats dinner around 7 PM.
She notes chronic nausea but no recent vomiting.
She was hospitalized for several days in November due to intractable nausea and vomiting/hyperemesis gravidarum after acute influenza illness.
No recurrent episodes of hyperemesis gravidarum and other than that episode, this has been uneventful. She follows regularly with FLIGHT OPERATION COORDINATOR.
She denies abdominal pain, no vaginal discharge no bleeding.
No dysuria and urgency nor hematuria.
Past History
Past History
ED Past Medical History: Other (Hyperemesis gravidarum)
ED Past Surgical History: Cholecystectomy
Social History
Tobacco: Non-smoker
Alcohol: None
Personal: Single
Living: with family
Employment: Employed
Family History
Family History: Other (Noncontributory)
Phy Exam
Physical Exam
Physical Exam:
GENERAL: 33-year-old female appears her stated age, bright and alert, pleasant, appears in no acute distress. Significant other at bedside.
EYE: anicteric pupils are equal reactive to light, extraocular muscles intact. Discs are sharp bilaterally. Visual acuity grossly intact.
NECK: Supple, nontender, no meningismus, no significant adenopathy.
ENT: oral mucosa is moist. No rhinorrhea.
CARDIAC: Regular rate and rhythm. no murmur.
LUNGS: Clear breath sounds bilaterally, no acute respiratory distress, no wheezes/rales/rhonchi
ABDOMEN: Soft, nondistended, without focal tenderness, normoactive BS.
NEUROLOGICAL: Alert and oriented x3, no focal neuro deficits. Gait is steady.
SKIN: Warm and dry, normal color, skin intact. No rash.
MUSCULOSKELETAL: No C/C/E. peripheral pulses are full and equal b/l. No palpable tenderness.
PSYCH: Normal and appropriate interaction.
Course
Orders/Labs/Results
Orders:
Orders
01/14/24 20:19
Complete Blood Count/With Diff Urgent
Comprehensive Metabolic Panel Urgent
01/14/24 23:46
Orthostatic VS- Treatment ONCE
Abnormal Lab Results
01/14/24
20:19
WBC 12.4 H 10^3/uL
(4.8-10.8)
Abs Immat Gran (auto) 0.1 H 10^3/uL
(0-0.05)
Absolute Neuts (auto) 7.8 H 10^3/uL
(1.4-6.5)
Absolute Lymphs (auto) 3.5 H 10^3/uL
(1.2-3.4)
Absolute Monos (auto) 0.9 H 10^3/uL
(0.1-0.6)
Sodium 134 L mmol/L
(135-145)
BUN 6 L mg/dl
(7-17)
Creatinine 0.4 L mg/dL
(0.6-1.0)
AST 40 H U/L
(14-36)
ALT 62 H U/L
(0-35)
01/14/24 20:19
01/14/24 20:19
Vital Signs
Initial and Last Documented VS:
Initial Vital Signs
Temp Pulse Resp BP Pulse Ox
97.8 F 78 16 115/79 99
01/14/24 20:13 01/14/24 20:13 01/14/24 20:13 01/14/24 20:13 01/14/24 20:13
Last Documented Vital Signs
Temp Pulse Resp BP Pulse Ox
97.8 F 78 16 116/75 99
01/14/24 20:13 01/14/24 20:13 01/14/24 20:13 01/15/24 01:00 01/15/24 01:00
MDM/Problems Addressed
Differential Diagnosis Includes:
Brief bilateral visual scotomas/flashing lights without loss of vision, accompanied with mild lightheadedness concerning for mild hypotension. Other consideration is mild hypoglycemia.
It is reassuring that patient has had no recurrent episodes and no other accompanying symptoms. Arrhythmia, neurologic disorder are much less likely.
Labs show minimally elevated white blood cell count of 12.4. Chemistries are unremarkable. Normal glucose of 90. Minimally elevated LFTs�improved from previous.
Will check orthostatic vital signs.
Patient has been offered a snack/box lunch as well.
Going forward, discussed importance of remaining well-hydrated on a daily basis, eat more frequent, smaller meals to prevent potential hypoglycemia.
Avoid rapid standing.
Prompt follow-up with TECHNICIAN SUPPORT ENGINEER for recheck.
Return precautions discussed.
Chronic conditions affecting care: Other (current )
*Pulse Oximetry
Patient hypoxic: no
*Critical Care Note
Total Time (30-74mins, 75-104mins- exclusive of procedures): Not Applicable
ED Attending Note
-
Portions of this chart may have been created with voice recognition software.� Occasional wrong word or��sound alike� substitutions may have occurred due to the inherent limitations of voice recognition software.
Discharge Plan
Departure
Patient Disposition: Home (Routine Discharge)
Date of Disposition: 01/15/24
Time of Disposition: 00:54
Patient with high blood pressure during this ER visit?: No
Condition: Good
Discharge Problem:
Visual field scotoma of both eyes, mild orthostasis
Instructions: Orthostatic Hypotension (DC), Low blood sugar in people without diabetes
Prescriptions:
No Action
No Current Medications
0
Referrals:
Melvin Nixon MD [Family Provider] - Call in 1-3 days for appt
Interventions
Interventions:
*Risk Screen - Suicide Last Done: 01/14/24 20:13
*General Assessment Last Done: 01/14/24 20:13
*Neglect/Abuse Screening Last Done: 01/14/24 20:13
ED- Fall Risk Assessment Last Done: 01/14/24 22:47
*ED COVID-19 Vaccine History Last Done: 01/14/24 20:13
*Nursing Disposition Last Done: 01/15/24 01:04
ED- Neurological Assessment Last Done: 01/14/24 22:47
ED-EENT Assessment Last Done: 01/14/24 22:47
ED Swallowing Screen Last Done: 01/14/24 22:47
Discharge Date and Time
Discharge Date/Time: 01/15/24 01:05
Print Language: CUBAN
[2024-01-15] VITALS: BP 104/65
[2024-01-15 00:25] VITALS: BP 101/60
[2024-01-15 00:26] VITALS: BP 108/72
[2024-01-15 00:27] VITALS: BP 112/74
[2024-01-15 00:35] VITALS: BP 101/60; BP 108/72; BP 112/74; PULSE 76; PULSE 82; PULSE 93
[2024-01-15 01:00] VITALS: BP 116/75
== END 2024-01-15 01:05 | disposition home or self-care (01) ==
LOC: EMR 20:12
PROVIDERS: Emergency Medicine; EMERGENCY PHYSICIAN Emergency Medicine; FAMILY PHYSICIAN Family Medicine
DX: O26.892 Other specified pregnancy related conditions, second trimester (principal); H53.459 Other localized visual field defect, unspecified eye; I95.1 Orthostatic hypotension; Z3A.17 17 weeks gestation of pregnancy
CPT/HCPCS: 99283; 80053; 85025